=== PATIENT | female | born 2005 | race Two or more races ===

== ENCOUNTER 2023-12-07 21:30 | Emergency (ER) | payer SELFPAY ==
[~2023-12-07] VITALS: Ht 157.5 cm; Wt 55.0 kg
[2023-12-07 22:35] LABS: APPEARANCE,URINE CLEAR (CLEAR); BILIRUBIN,URINE NEGATIVE (NEGATIVE); COLOR,URINE COLORLESS (YELLOW); GLUCOSE, URINE (UA) NEGATIVE (NEGATIVE); KETONES,URINE NEGATIVE (NEGATIVE); LEUKOCYTE ESTERASE ,URINE LARGE (NEGATIVE); NITRATE,URINE NEGATIVE (NEGATIVE); OCCULT BLOOD,URINE LARGE (NEGATIVE); PROTEIN,URINE TRACE mg/dL (NEGATIVE); SPECIFIC GRAVITIY, URINE 1.004 (1.003-1.030); UROBILINOGEN,URINE <=1.0 mg/dL (<=1.0)
[2023-12-07 22:49] LABS: BACTERIA,URINE Few /HPF (None Seen); SQUAMOUS EPITHELIAL CELL,UR Few /LPF (None Seen); WBC,URINE 26-50 /HPF (0-5)
[2023-12-07 23:28] VITALS: BP 110/63; PULSE 91; RESP 16; TEMP 98.1
[2023-12-07] MEDS ORDERED: CEPH-558 PO (23:34)
[2023-12-07] MEDS ORDERED: PHEN-846 PO (23:35)
== END 2023-12-07 23:39 | disposition home or self-care (01) ==
LOC: EMS 21:34
DX: N39.0 Urinary tract infection, site not specified (principal)
CPT/HCPCS: 81001; 87086; 87186; 99283